=== PATIENT | male | born 1985 | race Caucasian/White ===

== ENCOUNTER 2016-08-23 13:20 | Emergency (ER) | payer OTHER ==
[2016-08-23 13:27] VITALS: BP 140/69; PULSE 68; TEMP 98; BMI 31.0
[2016-08-23] MEDS ORDERED: KETOROLAC TROMETHAMINE 60 MG/2 ML VIAL IM ONE (14:13)
[2016-08-23] MEDS ORDERED: KETOROLAC TROMETHAMINE 30 MG/1 ML VIAL ONE (14:16)
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
== END 2016-08-23 15:01 | disposition home or self-care (01) ==
LOC: JERFT 13:20
PROC: 3E0233Z Introduction of Anti-inflammatory into Muscle, Percutaneous Approach (ICD-10-PCS; principal; 2016-08-23)
DX: S39.012A Strain of muscle, fascia and tendon of lower back, initial encounter (principal); S39.011A Strain of muscle, fascia and tendon of abdomen, initial encounter; V48.0XXA Car driver injured in noncollision transport accident in nontraffic accident, initial encounter; Y92.414 Local residential or business street as the place of occurrence of the external cause; Y93.89 Activity, other specified; Y99.0 Civilian activity done for income or pay
CPT/HCPCS: 72100-TC; 99281-25

== ENCOUNTER 2017-10-24 15:47 | Emergency (ER) | payer OTHER ==
[2017-10-24 16:00] VITALS: BP 119/75; PULSE 81; TEMP 97; BMI 28.1
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
== END 2017-10-24 17:06 | disposition home or self-care (01) ==
LOC: JERFT 15:47 → JER 15:47 → JERFT 17:06
PROC: 2W3GX1Z Immobilization of Right Thumb using Splint (ICD-10-PCS; principal; 2017-10-24)
DX: S63.681A Other sprain of right thumb, initial encounter (principal); Y35.811A Legal intervention involving manhandling, law enforcement official injured, initial encounter; Y93.89 Activity, other specified; Y92.89 Other specified places as the place of occurrence of the external cause; Y99.0 Civilian activity done for income or pay
CPT/HCPCS: 73140-TC-RT-FY; 99281-25

== ENCOUNTER 2019-03-18 05:20 | Day surgery (SDC) | payer BC ==
[2019-03-10 16:02] VITALS: BMI 28.1
[2019-03-18] MEDS ORDERED: oxyCODONE HCL 5 MG TABLET PO PRN ×2 (07:54)
[2019-03-18] MEDS ORDERED: ONDANSETRON 4 MG/2 ML VIAL IVPUSH PRN (07:54)
[2019-03-18] MEDS ORDERED: LACTATED RINGERS SOLUTION 1,000 ML IV SCH (08:00)
--- NOTE | 2019-03-18 08:10 | HP ---
Satellite H - Chief Complaint Chief Complaint: left elbow pain, weakness - Past Medical History Allergies/Adverse Reactions: Allergies Allergy/AdvReac Type Severity Reaction Status Date / Time No Known Allergies Allergy Verified 03/18/19 06:23 - Current Medications Current Medications: Home Medications Medication Instructions Recorded Glucosa Culp 2Kcl/Chondroitin Culp 1 each PO DAILY 03/10/19 [Glucosamine & Chondroitin Cap] Multivitamins [Multivit ([facility] 1 tab PO DAILY 03/10/19 Formulary)] Tumeric 1 tab PO DAILY 03/10/19 Hydrocodone/Acetaminophen 1 each PO Q6H #30 tablet MDD 4 03/18/19 [Hydrocodone-Acetamin 5-325 mg] Satellite Physical Exam - Physical Examination Vital Signs: Vital Signs Period Temp Pulse Resp BP Sys/Burton Pulse Ox Last 24 Hr 99.1 F 84 16 120/77 97 General Appearance: Well Nourished, Well Developed, Alert & Oriented x3 ENT: Clear Lung: Normal air movement Heart: Regular rate & rhythm Extremities: Other (left elbow- + deformity, + ttp, nvi) Neurological: Intact, Alert, Oriented Satellite Impression/Plan - Impression/Plan Impression: left distal biceps tendon rupture Operative Procedure: left distal biceps tendon repair Date to be Performed: 03/18/19
[2019-03-18] MEDS ORDERED: ceFAZolin SODIUM 1 GM VIAL IVPB ONE (08:18)
[2019-03-18] MEDS ORDERED: ACETAMINOPHEN 1000 MG/100 ML VIAL (NON FORMULARY) IVPB ONE (09:30)
--- NOTE | 2019-03-18 10:22 | OP ---
Operative Note - Note: Operative Date: 03/18/19 Pre-Operative Diagnosis: left distal biceps tendon rupture Operation: left distal biceps tendon repair Post-Operative Diagnosis: Same as Pre-op Surgeon: Fan Carrion Welding Machine Operator Electron Beam: Siddhartha Kennedy Anesthesiologist/GAMING COMMISSIONER: Rachel Riggs Anesthesia: General, Local Estimated Blood Loss (mls): 5 Drains, Volume Out (mls): 0 Blood Volume Replaced (mls): 0 Fluid Volume Replaced (mls): 700 Operative Report Dictated: Yes
[2019-03-18 12:41] VITALS: BP 110/60; PULSE 80; TEMP 98.6
--- NOTE | 2019-03-18 12:43 | OP ---
DATE OF OPERATION: 03/18/2019 PREOPERATIVE DIAGNOSIS: Left distal biceps tendon rupture. POSTOPERATIVE DIAGNOSIS: Left distal biceps tendon rupture. PROCEDURE: Left distal biceps tendon repair. SURGEON: Fan Carrion MD CONTAINER SHOP WELDER: JENNIFER Correia PROPOSAL SPECIALIST: Odalys Goetz CRNA ANESTHESIA: LMA anesthesia with left interscalene block. DRAINS: None. COMPLICATIONS: None. SPECIMEN: None. BLOOD LOSS: None. BLOOD GIVEN: None. FLUID REPLACEMENT: Plasma-Lyte 1000 mL. INDICATION: This patient is a 33-year-old male with a preoperative diagnosis of a left distal biceps tendon rupture. He had a clear Tony deformity. After extensive preoperative discussions he understood the potential risks, complications, alternatives and benefits of surgical versus nonsurgical treatment and elected to go forward with the surgery. DESCRIPTION OF PROCEDURE: Patient was brought to the operating room, peripheral IV placed and IV sedation given. Left interscalene block was performed. LMA anesthesia was induced. He received 2 g of IV Ancef. Left upper extremity was prepped and draped in sterile fashion, elevated, exsanguinated with an Esmarch bandage, tourniquet inflated to 250 mmHg. An incision was marked out with a marking pen on the anterior elbow antecubital fossa crease. I could palpate the biceps tendon. The incision was made with a No. 15 scalpel blade. Subcutaneous hemostasis achieved with the bipolar cautery. Dissection done with a Littler scissors to the biceps tendon. Great care was taken to preserve all crossing neurovascular structures. It was seen that the biceps tendon was still attached to the lacertus fibrosus. Circumferential dissection was done around the biceps tendon and the lacertus was freed up. The biceps tendon was redundant. There was no obvious injury to the muscle belly or the musculotendinous junction. However, this was a subacute injury at this point. I was able to use my finger and a Ruvalcaba elevator to free up surrounding scar tissue and adhesions further mobilizing the biceps tendon and biceps muscle belly. There was no hematoma or inflammatory response at this point. Next I was able to trace the biceps tendon down to the greater tuberosity using my finger. There was scar tissue. It was incised to free up the biceps tendon. I was able to feel the biceps tendon down to the radial tuberosity. Its footprint seemed to be wide and quite arnold. It seemed to be still attached to the radial tuberosity. I put the arm through a full range of motion and it rotated quite well with pronation and supination and when I pulled on the biceps tendon with significant force I was not able to peel it off its insertion into the radius and as mentioned at this point all inflammatory posttraumatic adhesions had been incised. I then for further understanding and characterization of the injury passed a curved Janice clamp, passed over to the greater tuberosity, made a 2nd incision on the dorsal radial aspect, incised through the forearm fascia down to the greater tuberosity. Weitlaner retractors were placed into the wound. A Pérez retractor was used for further visualization and I was able to feel from this side the insertion of the biceps tendon on to the radial tuberosity. It was quite arnold and have a very wide footprint. After additional dissection both distally and proximally and examining the arm through a full range of motion I determined that the patient had a Tony deformity because of a partial intrasubstance tear of the biceps tendon and not because of a rupture off of the radial tuberosity. Because the radial tuberosity insertion was so good, wide, and strong I decided not to take it down off the radial tuberosity as I had initially planned to reattach it after removing some more portion of its length to reestablish the appropriate amount of tension. My thinking was that I would not be able to replicate the strength and quality of his own, already existing insertion of the biceps tendon into the radial tuberosity. Therefore, I left the insertion in place and imbricated the biceps tendon in its proximal portion through the anterior cubital fossa incision. The dorsal wound was irrigated, washed out. Vicryl 2-0 used to close the deep fascial layer, 4-0 undyed Vicryl used to close the deep dermal layer and final skin reapproximation was done with a running subcuticular 4-0 Biosyn stitch. Incision was washed and dried and covered with Steri-Strips. Next our attention turned to the anterior, 1st incision. I made sure that the biceps tendon and biceps muscle belly were freed up. The tendon did look redundant even looking at it directly in this position. I then used a FiberWire suture to imbricate the biceps tendon at its proximal portion where it started to fan out. I shortened the biceps tendon by approximately 1-1/2 inches by sewing it to itself and putting in multiple supplemental strengthening sutures. This tightened up the biceps quite nicely and I believe will eliminate the Tony deformity and reestablish the strength. The area was copiously irrigated and washed out. The deep dermal layer closed with 4-0 undyed Vicryl suture. Final skin reapproximation was done with a running subcuticular 4-0 Biosyn stitch. This was also washed and dried, covered with Steri-Strips. The entire arm was covered with Webril. A 4-inch posterior Orthoglass splint was applied with the elbow at 90 degrees and the forearm in neutral and included the wrist. This was wrapped with 2 LAUREN bandages. Tourniquet was taken down after a total tourniquet time of 80 minutes. There were no complications during the case. The patient tolerated the procedure quite well, was extubated and brought to ambulatory recovery in stable condition. Enzo [id number]
== END 2019-03-18 12:40 | disposition home or self-care (01) ==
LOC: JASU-SURG 05:20
PROVIDERS: ATTEND Orthopaedic Surgery
PROC: 0LM20ZZ Reattachment of Left Shoulder Tendon, Open Approach (ICD-10-PCS; principal; 2019-03-18 08:00)
DX: S46.212A Strain of muscle, fascia and tendon of other parts of biceps, left arm, initial encounter (principal); X58.XXXA Exposure to other specified factors, initial encounter; Y93.9 Activity, unspecified; Y92.9 Unspecified place or not applicable; Y99.9 Unspecified external cause status
CPT/HCPCS: 94760; J0131